=== PATIENT | male | born 1950 | race Caucasian/White ===

== ENCOUNTER 2022-02-17 17:01 | Inpatient (IN) | payer MEDICARE, BC ==
[~2022-02-17 17:01] MED LIST: Iopamidol-370 76% 500 ML 1 ML ONE
[2022-02-17 18:10] LABS: #Basophils 0.1 thou/uL (0.0-0.2); #Eosinphils 0.5 thou/uL (0.0-0.7); #Monocytes 1.2 thou/uL (0.11-0.59); #Neutrophils 11.6 thou/uL (1.40-6.50); %Basophils 0.6 % (0.0-1.0); %Eosinophils 3.5 % (0.0-10.0); %Lymphocytes 12.8 % (21.0-51.0); %Monocytes 7.8 % (0.0-10.0); %Neutrophils 75.3 % (42.0-75.0); Hemoglobin 14.7 g/dL (14.0-18.0); Mean Corpuscular HGB CONC 35.2 g/dL (32.0-36.0); Mean Corpuscular Hemoglobin 32.9 pg (27.0-31.0); Mean Corpuscular Volume 93.6 fL (78.0-98.0); Mean Platelet Volume 7.4 fL (7.4-10.4); Platelet Count 270 thou/uL (130-400); RBC Distribution Width 11.3 % (11.5-14.5); Red Blood Cell (RBC) Count 4.47 mill/uL (4.70-6.10); White Blood Cell (WBC) Count 15.3 thou/uL (4.8-10.8)
[2022-02-17 18:26] LABS: ALT (SGPT) 23 U/L (8-55); AST (SGOT) 24 U/L (5-34); Alkaline Phosphatase 65 U/L (40-110); Anion Gap 17 mmol/L (10-20); BUN (Urea Nitrogen) 10 mg/dL (8.4-25.7); Bilirubin, Total 0.4 mg/dL (0.2-1.2); Calc. Creatinine Clearance 0 mL/min (70-130); Calcium 8.6 mg/dL (7.8-10.44); Carbon Dioxide 19 mmol/L (23-31); Chloride 106 mmol/L (98-107); Estimated GFR 93; Globulin 3.3 g/dL (2.4-3.5); Glucose 118 mg/dL (80-115); Potassium 4.2 mmol/L (3.5-5.1); Protein, Total 7.3 g/dL (5.8-8.1); Sodium 138 mmol/L (136-145)
[2022-02-17 18:50] LABS: INR-International Normal Ratio 0.9; PTT 29.2 sec (22.9-36.1); Prothrombin Time 12.5 sec (12.0-14.7)
[2022-02-17] MEDS ORDERED: Morphine 4 MG/ML VIAL ONE (20:26)
[2022-02-17] MEDS ORDERED: Ondansetron PF 4 MG/2 ML Vial ONE (20:27)
[2022-02-17] MEDS ORDERED: Ondansetron ODT 4 MG TAB PO PRN (21:45)
[2022-02-17] MEDS ORDERED: Acetaminophen 325 MG TAB PO PRN (21:45)
[2022-02-17] MEDS ORDERED: Pantoprazole 40 MG VIAL IVP SCH (22:00)
[2022-02-17 22:23] VITALS: BMI 33.2
[2022-02-17] MEDS ORDERED: Morphine 2 MG/ML VIAL SLOW IVP PRN (22:34)
[2022-02-17] MEDS: Lactated Ringer's 1,000 ML IV SCH (22:41)
[2022-02-18 05:07] LABS: #Basophils 0.1 thou/uL (0.0-0.2); #Eosinphils 0.2 thou/uL (0.0-0.7); #Lymphocytes 1.9 thou/uL (1.20-3.40); #Monocytes 1.1 thou/uL (0.11-0.59); #Neutrophils 9.3 thou/uL (1.40-6.50); %Basophils 0.7 % (0.0-1.0); %Eosinophils 1.9 % (0.0-10.0); %Lymphocytes 14.8 % (21.0-51.0); %Neutrophils 73.6 % (42.0-75.0); Mean Corpuscular HGB CONC 32.6 g/dL (32.0-36.0); Mean Corpuscular Hemoglobin 30.9 pg (27.0-31.0); Mean Corpuscular Volume 94.9 fL (78.0-98.0); Mean Platelet Volume 7.9 fL (7.4-10.4); Platelet Count 249 thou/uL (130-400); RBC Distribution Width 11.5 % (11.5-14.5); White Blood Cell (WBC) Count 12.6 thou/uL (4.8-10.8)
[2022-02-18] MEDS: Lactated Ringer's 1,000 ML IV SCH ×2 (09:48→20:09)
[2022-02-18] MEDS: Pantoprazole 40 MG VIAL IVP SCH ×2 (09:49→20:09)
[2022-02-18] MEDS: Sodium Chloride 0.65% Nasal 44 ML BOT EA NARE SCH ×4 (09:49→20:20)
[2022-02-18] MEDS: Amoxicillin/Potassium Clav 875 MG TAB PO SCH ×2 (09:49→20:09)
[2022-02-18] MEDS: HYDROcodone/Acetaminophen 5/325 mg Tablet PO PRN ×2 (12:43→19:32)
[2022-02-18] MEDS ORDERED: Sodium Chloride 0.65% Nasal 44 ML BOT EA NARE SCH (20:30)
[2022-02-19] MEDS: Lactated Ringer's 1,000 ML IV SCH (04:35)
[2022-02-19 06:53] LABS: #Basophils 0.1 thou/uL (0.0-0.2); #Eosinphils 0.4 thou/uL (0.0-0.7); #Lymphocytes 2.2 thou/uL (1.20-3.40); #Monocytes 1.2 thou/uL (0.11-0.59); #Neutrophils 4.9 thou/uL (1.40-6.50); %Basophils 0.8 % (0.0-1.0); %Eosinophils 4.7 % (0.0-10.0); %Lymphocytes 24.9 % (21.0-51.0); %Monocytes 13.4 % (0.0-10.0); %Neutrophils 56.2 % (42.0-75.0); Hemoglobin 13.7 g/dL (14.0-18.0); Mean Corpuscular HGB CONC 33.7 g/dL (32.0-36.0); Mean Corpuscular Hemoglobin 32.2 pg (27.0-31.0); Mean Corpuscular Volume 95.7 fL (78.0-98.0); Mean Platelet Volume 7.3 fL (7.4-10.4); Platelet Count 232 thou/uL (130-400); RBC Distribution Width 11.4 % (11.5-14.5); Red Blood Cell (RBC) Count 4.25 mill/uL (4.70-6.10); White Blood Cell (WBC) Count 8.7 thou/uL (4.8-10.8)
[2022-02-19] MEDS ORDERED: Acetaminophen 325 MG TAB PO PRN ×2 (07:23→10:00)
[2022-02-19] MEDS ORDERED: HYDROcodone/Acetaminophen 5/325 mg Tablet PO PRN (08:00)
[2022-02-19] MEDS ORDERED: Fentanyl 100 MCG/2 ML VIAL ONE (09:07)
[2022-02-19] MEDS ORDERED: Dexamethasone 20 MG/5 ML VIAL ONE (09:10)
[2022-02-19] MEDS ORDERED: Ondansetron PF 4 MG/2 ML Vial ONE (09:10)
[2022-02-19] MEDS ORDERED: Succinylcholine 200 MG/10 ml SYRINGE FS ONE (09:10)
[2022-02-19] MEDS ORDERED: PROPOFOL 200 MG/20 ML VIAL ONE (09:10)
[2022-02-19] MEDS: Amoxicillin/Potassium Clav 875 MG TAB PO SCH (11:25)
[2022-02-19] MEDS: Pantoprazole 40 MG VIAL IVP SCH (11:25)
[2022-02-19 11:27] VITALS: BP 173/85; TEMP 98.9
== END 2022-02-19 15:52 | disposition home or self-care (01) | DRG 86 ==
LOC: ERS 17:01 → 2NO 20:45 → OBSVTOIN 02-19 08:30
PROVIDERS: ADMIT Emergency Medicine; ATTEND Emergency Medicine
PROC: 0DB78ZX Excision of Stomach, Pylorus, Via Natural or Artificial Opening Endoscopic, Diagnostic (ICD-10-PCS; principal; 2022-02-19)
DX: S02.85XA Fracture of orbit, unspecified, initial encounter for closed fracture (principal); K92.0 Hematemesis; S22.41XA Multiple fractures of ribs, right side, initial encounter for closed fracture; Z20.822 Contact with and (suspected) exposure to COVID-19; W19.XXXA Unspecified fall, initial encounter; S02.2XXA Fracture of nasal bones, initial encounter for closed fracture; K31.819 Angiodysplasia of stomach and duodenum without bleeding; K29.80 Duodenitis without bleeding; K29.70 Gastritis, unspecified, without bleeding; Z90.09 Acquired absence of other part of head and neck; Z82.49 Family history of ischemic heart disease and other diseases of the circulatory system; Z83.3 Family history of diabetes mellitus
CPT/HCPCS: 36415; 70450; 70486; 71045; 71260; 74177; 80053; 80307; 83605; 85025; 85610; 85730; 88305; 88342; 93005; 96361; 96374; 96375; 96376; C9113; G0378; J1100; J2270; J2405; J2704; J3010; J7120; J7620; Q9967; U0003; U0005